=== PATIENT | male | born 1950 | race Caucasian/White ===

== ENCOUNTER 2017-01-03 21:50 | Emergency (ER) | payer OTHER ==
[~2017-01-03] VITALS: Ht 180.3 cm; Wt 63.4 kg
[~2017-01-03 21:50] MED LIST: NOHOMEMEDS
[2017-01-03 22:05] VITALS: BP 128/74
[2017-01-03] MEDS ORDERED: INDOCIN25 MG PO (22:39)
== END 2017-01-03 23:00 | disposition home or self-care (01) ==
LOC: EME 21:50
DX: S16.1XXA Strain of muscle, fascia and tendon at neck level, initial encounter (principal); S09.90XA Unspecified injury of head, initial encounter; V49.40XA Driver injured in collision with unspecified motor vehicles in traffic accident, initial encounter; Y92.410 Unspecified street and highway as the place of occurrence of the external cause; Z85.01 Personal history of malignant neoplasm of esophagus; F17.200 Nicotine dependence, unspecified, uncomplicated
CPT/HCPCS: 99281; 99283